=== PATIENT | male | born 1950 | race Caucasian/White ===

== ENCOUNTER 2024-04-15 10:04 | Day surgery (SDC) | payer OTHER, SELFPAY ==
[2024-04-15 10:31] VITALS: BP 127/80; PULSE 74; RESP 14; TEMP 36.5; O2SAT 96
--- NOTE | 2024-04-15 10:46 | PM.HP.1 ---
History of Present Illness History of Present Illness Date Patient Seen: 04/15/24 Chief complaint: SDC Narrative: Screening colonoscopy [facility] Medical History (Updated 04/15/24 @ 10:25 by Natasha Braxton, RN) Heart disease (~1994) Heartburn Anxiety Neck pain Back pain Surgical History (Updated 04/15/24 @ 10:25 by Natasha Braxton, GREGORIA) Hx of CABG H/O hernia repair Social History Smoking Status: Never smoker alcohol intake: never Meds Home Medications and Allergies Home Medications Medication Instructions Recorded Confirmed Type aspirin 81 mg tablet,delayed 81 mg PO DAILY 04/15/24 04/15/24 History release citalopram 20 mg tablet 20 mg PO DAILY 04/15/24 04/15/24 History ezetimibe 10 mg tablet 10 mg PO DAILY 04/15/24 04/15/24 History fenofibrate 160 mg tablet 160 mg PO DAILY 04/15/24 04/15/24 History lisinopril 5 mg tablet 5 mg PO DAILY 04/15/24 04/15/24 History memantine 5 mg tablet 10 mg PO BID 04/15/24 04/15/24 History omeprazole 20 mg capsule,delayed 20 mg PO BID 04/15/24 04/15/24 History release tamsulosin 0.4 mg capsule 0.4 mg PO DAILY 04/15/24 04/15/24 History Allergies Allergy/AdvReac Type Severity Reaction Status Date / Time No Known Drug Allergies Allergy Verified 04/15/24 10:19 Exam Vital Signs (past 8 hours): - 04/15/24 10:31 Temperature 97.7 F Pulse Rate 74 Respiratory Rate 14 Blood Pressure 127/80 Pulse Oximetry 96 Oxygen Delivery Method Room Air Oxygen Delivery Method Room Air Narrative Exam Narrative: Oropharynx free of lesions Chest clear to auscultation percussion Cardiac exam reveals no S3 or murmur Assessment & Plan Assessment & Plan narrative: Need for colorectal cancer screening. Risks, benefits, alternatives have been explained. Time-Based Coding :: [TOTAL MINUTES] spent with patient and on the chart (including review of chart, obtaining history, exam, reviewing outside data, placing orders, documenting exam and treatment plan, and counseling patient) on [DATE].
--- NOTE | 2024-04-15 10:47 | P.OP.COLON_ITS ---
Operative Date/Time/Diagnoses Date of procedure: 04/15/24 Pre-op diagnosis: See indication and findings Procedure & Clinicians Study performed: Colonoscopy Indications: Screening Surgeon: Alma Gayle Procedure Notes Procedure in detail: After informed consent was obtained the patient was placed in left lateral d ecubitus position. The video colonoscope was introduced the rectum slowly advanced cecum. Preparation was good. On slow withdrawal mucosa was carefully examined. The scope was removed. The patient tolerated procedure well. Blood loss none Complications none Sedation mac Findings 1. Normal colonoscopy to cecum The patient could have 1 final colonoscopy at age 81
[2024-04-15 11:08] VITALS: BP 85/59; PULSE 63; RESP 12; TEMP 36.1; O2SAT 94
[2024-04-15 11:13] VITALS: BP 89/59; PULSE 61; RESP 12; O2SAT 94
[2024-04-15 11:20] VITALS: BP 97/64; PULSE 68; RESP 19; O2SAT 96
[2024-04-15 11:25] VITALS: BP 107/77; PULSE 66; RESP 15; TEMP 36.4; O2SAT 95
[2024-04-15 11:34] VITALS: BP 107/77; PULSE 64; RESP 17; O2SAT 96
== END 2024-04-15 11:37 | disposition home or self-care (01) ==
PROVIDERS: PCP Family Medicine; Referring Provider Internal Medicine Gastroenterology; Visit Provider Internal Medicine Gastroenterology
PROC: 0DJD8ZZ Inspection of Lower Intestinal Tract, Via Natural or Artificial Opening Endoscopic (ICD-10-PCS; CPT 45378; principal; 2024-04-15 11:00)
DX: Z12.11 Encounter for screening for malignant neoplasm of colon (principal)
CPT/HCPCS: G0121; J2704